=== PATIENT | female | born 1985 | race Asian ===

== ENCOUNTER → 2019-05-19 | Outpatient (CLI) | payer OTHER | LOC: COL.RAD 08:00 | DX: I35.1 Nonrheumatic aortic (valve) insufficiency (principal) | CPT/HCPCS: Q9967 ==

== ENCOUNTER 2021-05-20 06:09 | Inpatient (IN) | payer MEDICAID ==
[2021-05-20] VITALS (35 sets, daily range): BP systolic 88–118; BP diastolic 47–67; PULSE 50–99; TEMP 97.9–98.7
[~2021-05-20] VITALS: Ht 160 cm; Wt 83.2 kg
--- NOTE | 2021-05-20 06:25 | NUR ---
Pt arrives on unit ambulatory for IOL. Changed into a clean gown. EFM and toco applied. VSS. Denies regular ctx, LOF, vaginal bleeding and reports GFM. Admission assessment performed. Consents signed. IV started in LF. Labs drawn. LR infusing. Pt updated on POC. Bed locked in low position. Call light within reach. No questions or concerns at this time.
[2021-05-20] MEDS ORDERED: PRENATAL TABLET PO (07:20)
[2021-05-20] MEDS ORDERED: PROFERRIN ES12 MG PO (07:21)
[2021-05-20] MEDS ORDERED: OSCAL 500 TAB500 MG PO (07:21)
[2021-05-20 07:29] LABS: BASO % 0.2 % (0.0-2.0); EOS # 0.1 (0.0-0.7); EOS % 1.2 % (0-4.0); GRAN # 5.8 (1.4-6.5); GRAN % 62.7 % (42.2-75.2); HEMOGLOBIN 11.7 g/dl (12.5-16.0); LYMPH # 2.5 (1.2-3.4); LYMPH % 26.8 % (20.0-51.0); MEAN CELL VOLUME 94 fl (80.0-100.0); MEAN CORPUSCULAR HEMOGLOBIN 32 pg (27.0-31.0); MEAN CORPUSCULAR HGB CONC 34 g/dl (33.0-37.0); MEAN PLATELET VOLUME 12.3 fl (7.4-10.4); MONO # 0.8 (0.1-0.6); MONO % 8.7 % (1.7-9.3); PLATELET COUNT 118 K/mm3 (130-400); RED BLOOD COUNT 3.61 M/mm3 (4.10-5.30); REDCELL DISTRIBUTION WIDTH-CV 13.5 % (11.5-14.5)
--- NOTE | 2021-05-20 08:12 | NUR ---
PATIENT ASSISTED STANDBY TO BATHROOM. RN CONNECTED MONITORS ONCE BACK IN BED.
--- NOTE | 2021-05-20 09:17 | NUR ---
PATIENT AMBULATING, RICHIE CARE PROVIDED, TOWELS/PADS CHANGED UNDER PATIENT.
--- NOTE | 2021-05-20 11:24 | NUR ---
1021 PATIENT SITTING UP, RN AT BEDSIDE ADJUSTING MONITORS. DIFFICULTY TRACING HEART RATE DUE TO MATERNAL POSITION 1040 PATIENT REPOSITIONED IN BED, MENAGERIE CARETAKER CONSULTING WITH CARDIOLOGY FOR HISTORY OF AORTIC VALVE ABNORMALITY. 1052 PATIENT REPOSITIONED FOR EPIDURAL. SITTING UPRIGHT. DIFFICULTY TRACING FHR DUE TO POSITIONING
--- NOTE | 2021-05-20 13:05 | NUR ---
Pt calls out with increase of pain and pressure. SVE per this RN C/+2. Dr. Peterson notified and requested for delivery. Pitocin shut up with impending delivery and variable decelerations. 1320-Dr. Peterson at bedside. Pt prepped for delivery and begins pushing with provider. 1324- of viable female infant attended by Dr. Peterson. NC x1 and cut on perineum. dried and placed on maternal abdomen. Care of to Rekha Chaudhari RN. Apgars 8/9/9. 1327-Spontaneous delivery of placenta. Pitocin bolus infusing per protocol. Fundus firm at umbilicus. Bleeding WNL. Second degree laceration repaired by provider. Pericare performed. Ice pack applied. Bed locked in low position. Call light within reach. No questions or concerns at this time.
[2021-05-20] MEDS ORDERED: MOTRIN 800800 MG/TAB PO (15:57)
[2021-05-21 01:00] VITALS: BP 104/68; PULSE 60; TEMP 98.6
[2021-05-21 06:56] VITALS: BP 117/68; PULSE 48; TEMP 98.2
--- NOTE | 2021-05-21 09:15 | NUR ---
Initial visit; Patient thanked Financial Adviser for offering congratulations for the of her daughter. Financial Adviser thanked patient for coming to [place] and patient replied that she has had wonderful care here.
[2021-05-21] MEDS ORDERED: BREASTPUMP MC (10:34)
[2021-05-21 16:35] VITALS: BP 102/53; PULSE 58; TEMP 98.2
[2021-05-21 20:00] VITALS: BP 96/51; PULSE 53; TEMP 98.8
[2021-05-22 06:30] VITALS: BP 96/57; PULSE 51; TEMP 98.5
--- NOTE | 2021-05-22 06:40 | NUR ---
TOOK OVER CARE AT 0620. MOTHER AND REQUESTED BOTTLE. TALKED ABOUT POSSIBLE DISCHARGE THIS MORNING. VITALS AND ASSESSMENT COMPLETE.
--- NOTE | 2021-05-22 13:29 | NUR ---
1310 DISCHARGE INFO PROVIDED. NO QUESTIONS OR CONCERNS AT THIS TIME. CARSEAT STRAPS CHECKED. VAL REEVES WALKS FAMILY TO CAR AT THIS TIME.
== END 2021-05-22 13:12 | disposition home or self-care (01) | DRG 806 ==
LOC: LDR 06:09 → OB 06:09
PROVIDERS: ADMIT Obstetrics & Gynecology
PROC: 10E0XZZ Delivery of Products of Conception, External Approach (ICD-10-PCS; principal; 2021-05-20)
PROC: 0KQM0ZZ Repair Perineum Muscle, Open Approach (ICD-10-PCS; 2021-05-20)
PROC: 10907ZC Drainage of Amniotic Fluid, Therapeutic from Products of Conception, Via Natural or Artificial Opening (ICD-10-PCS; 2021-05-20)
PROC: 3E033VJ Introduction of Other Hormone into Peripheral Vein, Percutaneous Approach (ICD-10-PCS; 2021-05-20)
DX: O40.3XX0 Polyhydramnios, third trimester, not applicable or unspecified (principal); Q23.1 Congenital insufficiency of aortic valve; Z37.0 Single live birth; O70.1 Second degree perineal laceration during delivery; O99.013 Anemia complicating pregnancy, third trimester; D64.9 Anemia, unspecified; O35.8XX0 Maternal care for other (suspected) fetal abnormality and damage, not applicable or unspecified; O69.1XX0 Labor and delivery complicated by cord around neck, with compression, not applicable or unspecified; O99.820 Streptococcus B carrier state complicating pregnancy; Z3A.38 38 weeks gestation of pregnancy
CPT/HCPCS: J2540; J2590; J7120

== ENCOUNTER 2022-02-25 08:27 | Day surgery (SDC) | payer MEDICAID ==
[~2022-02-25] VITALS: Ht 165.1 cm; Wt 67.7 kg
[2022-02-25] VITALS (12 sets, daily range): BP systolic 96–108; BP diastolic 45–79; PULSE 45–75; TEMP 98.9
[~2022-02-25 08:27] MED LIST: ASPIRIN E.C. 8181 MG PO; BREASTPUMP MC; MOTRIN 800800 MG/TAB PO; OSCAL 500 TAB500 MG PO; PRENATAL TABLET PO; PROFERRIN ES12 MG PO; VITAMIN D31000 I1 PO
[2022-02-25 09:19] LABS: CALCIUM 8.6 mg/dL (8.4-10.2); CREATININE, serum 0.56 mg/dL (0.57-1.11); POTASSIUM 3.9 mmol/L (3.5-4.5)
[2022-02-25 09:22] LABS: HEMATOCRIT 37.9 % (37.0-47.0); HEMOGLOBIN 12.8 g/dl (12.5-16.0); MEAN CELL VOLUME 96 fl (80.0-100.0); MEAN CORPUSCULAR HEMOGLOBIN 32 pg (27-31); MEAN CORPUSCULAR HGB CONC 34 g/dl (33.0-37.0); PLATELET COUNT 194 K/mm3 (130-400); RED BLOOD COUNT 3.97 M/mm3 (4.10-5.30); REDCELL DISTRIBUTION WIDTH-CV 12.5 % (11.5-14.5)
[2022-02-25 09:32] LABS: INR 1.1 (0.8-3.0); PROTHROMBIN TIME 12.1 SECONDS (9.7-12.8)
[2022-02-25 09:35] LABS: PARTIAL THROMBOPLASTIN TIME 33.2 SECONDS (26.0-37.0)
--- NOTE | 2022-02-25 10:58 | NUR ---
See merge for all medication, assessment, intervention, and vital sign times.
--- NOTE | 2022-02-25 12:15 | NUR ---
Pt also had a venous groin access, dressing CDI, no hematoma, soft to palpation.
--- NOTE | 2022-02-25 14:00 | NUR ---
GROIN BANDAGE CDI, NO HEMATOMA
--- NOTE | 2022-02-25 14:15 | NUR ---
3MLS OF AIR REMOVED FROM TR BAND, SITE WITH BLOOD OOZING, REPLACED 3 ML OF AIR, BLOOD OOZING STOPPED.
--- NOTE | 2022-02-25 16:00 | NUR ---
GROIN BANDAGE CDI
--- NOTE | 2022-02-25 17:20 | NUR ---
DISCHARGE PAPERWORK DISCUSSED WITH PT AND , PT BECAME ANXIOUS AND LIGHT HEADED. STAFF ASSISTED PT BACK TO BED TO FINISH DISCUSSING DISCHARGE, TOOK VS X3 VSS. PT AND REPORTED THE DIZZINESS SHE HAD WAS ONE OF THE REASONS A HEART CATH WAS DONE. PT REPORTS NO FURTHER DIZZINESS. PT DISCHARGED VIA WHEELCHAIR.
== END 2022-02-25 18:00 | disposition home or self-care (01) ==
LOC: COL.CAR 08:27
PROVIDERS: Internal Medicine Cardiovascular Disease
DX: R06.00 Dyspnea, unspecified (principal); R06.02 Shortness of breath; R94.39 Abnormal result of other cardiovascular function study; Q23.1 Congenital insufficiency of aortic valve; R55 Syncope and collapse; R00.1 Bradycardia, unspecified
CPT/HCPCS: C1769; C1894; J1644; J2250; J3010